=== PATIENT | male | born 1945 | race Caucasian/White ===

== ENCOUNTER → 2021-04-19 | Outpatient (CLI) | payer MEDICARE, OTHER ==
[~2021-04-19] MED LIST: ALLO300 PO; ASPI325 PO; ASPI81CH PO; CLOP75 PO; FISH1000 PO; GLYB5 PO; GLYMET5 PO; HUMALOG100 UNIT/1 SC; INS70/30I SUBQ; INSULANI SC; INSULANPEN SC; LEVSOD100 PO; LEVSOD50 PO; LISI10 PO; LOSA25 PO; METF500C PO; METO25ER PO; NIAC500ER PO; NITR.4SL SL; OMEGA-3 + VITA1 EACH PO; PIOG30 PO; SITA50T2 PO; TERA1 PO; TERAZOSIN PO
[2021-04-19 16:09] LABS: Hematocrit 40.9 % (37.0-53.0); Hemoglobin 13.7 g/dL (13.5-17.5); Mean Corpuscular HGB 32.1 pg (26.0-34.0); Mean Corpuscular HGB Conc 33.5 g/dL (31.5-36.5); Mean Corpuscular Volume 96 fL (80-100); Mean Platelet Volume 10.5 fL (9.1-12.4); Platelet Count 221 K/mm3 (150-400); RDW Coefficient Variation 12.9 % (11.7-14.2); RDW Standard Deviation 45.2 fL (35.1-46.3); Red Blood Cell Count 4.27 M/mm3 (4.30-5.90); White Blood Cell Count 9.55 K/mm3 (4.00-11.30)
[2021-04-19 16:25] LABS: International Normalized Ratio 0.97; Prothrombin Time Results 10.2 Sec (9.7-11.5)
[2021-04-19 16:38] LABS: BASOPHILS ABSOLUTE MAN 0.19 K/mm3 (0.00-0.23); BASOPHILS PERCENT MAN 2 % (0-2); EOSINOPHILS ABSOLUTE MAN 0.28 K/mm3 (0.00-0.68); EOSINOPHILS PERCENT MAN 3 % (0-6); LYMPHOCYTES ABSOLUTE MAN 1.62 K/mm3 (0.84-5.20); LYMPHOCYTES PERCENT MAN 17 % (21-46); MONOCYTES ABSOLUTE MAN 0.38 K/mm3 (0.16-1.47); MONOCYTES PERCENT MAN 4 % (4-13); NEUTROPHILS ABSOLUTE MAN 7.06 K/mm3 (1.96-9.15); SEG NEUTROPHILS PERCENT MAN 74 % (41-73); TOTAL CELLS COUNTED 100
[2021-04-19 17:00] LABS: SARS-Cov-2 (COVID-19) PCR, MMC NEGATIVE (NEGATIVE)
[2021-04-19 17:04] LABS: Bun/Creatinine Ratio 19.5 (12.0-20.0); Calcium, Blood 10.6 mg/dL (8.5-10.1); Creatinine, Blood 1.64 mg/dL (0.60-1.20); Potassium, Blood 4.5 mmol/L (3.5-5.5)
== END | disposition home or self-care (01) ==
LOC: LAB SHORT 15:19
PROVIDERS: Internal Medicine Interventional Cardiology
DX: Z01.812 Encounter for preprocedural laboratory examination (principal); I25.118 Atherosclerotic heart disease of native coronary artery with other forms of angina pectoris; R07.9 Chest pain, unspecified; I10 Essential (primary) hypertension; Z20.822 Contact with and (suspected) exposure to COVID-19
CPT/HCPCS: 80048; 85007; 85027; 85610; U0004

== ENCOUNTER 2021-04-20 07:54 | Day surgery (SDC) | payer MEDICARE, OTHER ==
[~2021-04-20] VITALS: Ht 177.8 cm; Wt 123.0 kg
[~2021-04-20 07:54] MED LIST changes: -OMEGA-3 + VITA1 EACH PO
[2021-04-20] MEDS ORDERED: OMEGA-3 + VITA1 EACH PO (08:38)
--- NOTE | 2021-04-20 12:31 | NUR ---
PT SITTING IN RECLINER IN RECOVERY ROOM TALKING WITH SON. LEFT RADIAL TR BAND SITE SOFT NON-TENDER WITH NO HEMATOMA, NO PULSATILE BLEEDING WITH WRIST BOARD IN PLACE. PT DENIES CHEST PAIN. CALL LIGHT IN REACH.
--- NOTE | 2021-04-20 14:08 | NUR ---
AT 1355 AFTER 10 MIN 12 CC OF AIR WAS REMOVED OUT OF NOW DEFLATED LEFT TR BAND. NO HEMATOMA, NO PULSATILE BLEEDING WITH WRIST BOARD IN PLACE. DISCHARGE INSTRUCTIONS REVIEWED AND ALL QUESTIONS ANSWERED.
--- NOTE | 2021-04-20 14:43 | NUR ---
PATIENT UP AND OFF MONITOR. TR BAND REMOVED AND SITE CLEANED. CLOTH DOT PLACED. SON HERE. DISCHARGE INSTRUCTIONS REVIEWED WITH THE PATIENT AND SON. WHITE WRIST BOARD REPLAED TO THE RIGHT WRIST AND PATIENT INSTRUCTED TO WEAR THE BOARD FOR TWO DAYS AND NO LIFTING WITH RIGHT WRIST FOR 5 DAYS. PIV REMOVED. VVS. PATIENT DRESSED SELF AND TO THE WHEELCHAIR. DISCHARGED HOME WITH SON DRIVING.
== END 2021-04-20 14:55 | disposition home or self-care (01) ==
LOC: MHTC 07:54
DX: I25.110 Atherosclerotic heart disease of native coronary artery with unstable angina pectoris (principal); I10 Essential (primary) hypertension; E78.2 Mixed hyperlipidemia; E11.9 Type 2 diabetes mellitus without complications; E03.9 Hypothyroidism, unspecified; Z95.5 Presence of coronary angioplasty implant and graft; Z96.653 Presence of artificial knee joint, bilateral; Z79.84 Long term (current) use of oral hypoglycemic drugs
CPT/HCPCS: 76937; 85347; 93454; 99152; 99153; C1769; C1887; C1894; J1644; J2250; J3010; J7030; Q9967

== ENCOUNTER 2021-05-09 15:10 | Emergency (ER) | payer MEDICARE, OTHER ==
[~2021-05-09] VITALS: Ht 177.8 cm; Wt 117.9 kg
[~2021-05-09 15:10] MED LIST changes: +OMEGA-3 + VITA1 EACH PO
[2021-05-09 15:51] LABS: BASOPHILS ABSOLUTE AUTO 0.08 K/mm3 (0.00-0.23); BASOPHILS PERCENT AUTO 1 % (0-2); EOSINOPHILS ABSOLUTE AUTO 0.38 K/mm3 (0.00-0.68); EOSINOPHILS PERCENT AUTO 4 % (0-6); Hematocrit 39.2 % (37.0-53.0); Hemoglobin 13.2 g/dL (13.5-17.5); IMMATURE GRAN ABSOLUTE AUTO 0.05 K/mm3 (0.00-0.10); IMMATURE GRAN PERCENT AUTO 1 % (0-1); LYMPHOCYTES ABSOLUTE AUTO 1.62 K/mm3 (0.84-5.20); LYMPHOCYTES PERCENT AUTO 17 % (21-46); MONOCYTES ABSOLUTE AUTO 0.57 K/mm3 (0.16-1.47); MONOCYTES PERCENT AUTO 6 % (4-13); Mean Corpuscular HGB 32.1 pg (26.0-34.0); Mean Corpuscular HGB Conc 33.7 g/dL (31.5-36.5); Mean Corpuscular Volume 95 fL (80-100); Mean Platelet Volume 10.8 fL (9.1-12.4); NEUTROPHILS ABSOLUTE AUTO 6.94 K/mm3 (1.96-9.15); NEUTROPHILS PERCENT AUTO 72 % (41-73); Platelet Count 213 K/mm3 (150-400); RDW Coefficient Variation 12.8 % (11.7-14.2); RDW Standard Deviation 44.6 fL (35.1-46.3); Red Blood Cell Count 4.11 M/mm3 (4.30-5.90); White Blood Cell Count 9.64 K/mm3 (4.00-11.30)
[2021-05-09 16:34] LABS: International Normalized Ratio 0.99; Prothrombin Time Results 10.4 Sec (9.7-11.5)
[2021-05-09 16:41] LABS: Albumin, Blood 3.3 g/dL (3.4-5.0); Albumin/Globulin Ratio 0.8 (0.8-1.8); Bilirubin, Total 0.4 mg/dL (0.1-1.0); Bun/Creatinine Ratio 25.9 (12.0-20.0); Calcium, Blood 10.2 mg/dL (8.5-10.1); Creatinine, Blood 1.85 mg/dL (0.60-1.20); Globulin, Blood 4.2 g/dL (2.2-4.0); Potassium, Blood 4.4 mmol/L (3.5-5.5); Total Protein, Blood 7.5 g/dL (6.4-8.2); Troponin I 0.031 ng/mL (0.000-0.040)
[2021-05-09 18:19] LABS: Influenza A, PCR NEGATIVE (NEGATIVE); Influenza B, PCR NEGATIVE (NEGATIVE); Resp Syncytial Virus, PCR NEGATIVE (NEGATIVE); SARS-Cov-2 (COVID-19) PCR, MMC NEGATIVE (NEGATIVE)
== END 2021-05-09 18:21 | disposition home or self-care (01) ==
LOC: ER 15:10
PROVIDERS: Emergency Medicine
DX: R07.9 Chest pain, unspecified (principal); E11.9 Type 2 diabetes mellitus without complications; I25.2 Old myocardial infarction; I25.10 Atherosclerotic heart disease of native coronary artery without angina pectoris; G47.33 Obstructive sleep apnea (adult) (pediatric); Z88.8 Allergy status to other drugs, medicaments and biological substances; Z79.84 Long term (current) use of oral hypoglycemic drugs; Z79.4 Long term (current) use of insulin; Z79.899 Other long term (current) drug therapy
CPT/HCPCS: 0241U; 71045; 80053; 84484; 85025; 85610; 85730; 93005; 93010; 99285-25; A9270

== ENCOUNTER 2024-04-26 05:53 | Inpatient (IN) | payer MEDICARE, OTHER ==
[~2024-04-26] VITALS: Ht 177.8 cm; Wt 119.9 kg
[~2024-04-26 05:53] MED LIST changes: +EUTHYROX125 MCG PO
[2024-04-26 06:45] LABS: BASOPHILS PERCENT AUTO 1 % (0-2); EOSINOPHILS ABSOLUTE AUTO 0.12 K/mm3 (0.00-0.68); EOSINOPHILS PERCENT AUTO 1 % (0-6); Hematocrit 39.7 % (37.0-53.0); Hemoglobin 13.6 g/dL (13.5-17.5); IMMATURE GRAN ABSOLUTE AUTO 0.05 K/mm3 (0.00-0.10); IMMATURE GRAN PERCENT AUTO 0 % (0-1); LYMPHOCYTES ABSOLUTE AUTO 1.25 K/mm3 (0.84-5.20); LYMPHOCYTES PERCENT AUTO 10 % (21-46); MONOCYTES ABSOLUTE AUTO 0.49 K/mm3 (0.16-1.47); MONOCYTES PERCENT AUTO 4 % (4-13); Mean Corpuscular HGB 32.2 pg (26.0-34.0); Mean Corpuscular HGB Conc 34.3 g/dL (31.5-36.5); Mean Corpuscular Volume 94 fL (80-100); NEUTROPHILS ABSOLUTE AUTO 10.09 K/mm3 (1.96-9.15); NEUTROPHILS PERCENT AUTO 84 % (41-73); Platelet Count 213 K/mm3 (150-400); RDW Coefficient Variation 13.6 % (11.7-14.2); RDW Standard Deviation 46.6 fL (35.1-46.3); Red Blood Cell Count 4.23 M/mm3 (4.30-5.90)
[2024-04-26 07:03] LABS: Albumin, Blood 3.7 g/dL (3.4-5.0); Bilirubin, Total 0.7 mg/dL (0.1-1.0); Bun/Creatinine Ratio 22.3 (12.0-20.0); Calcium, Blood 9.9 mg/dL (8.5-10.1); Creatinine, Blood 3.09 mg/dL (0.60-1.20); Globulin, Blood 3.7 g/dL (2.2-4.0); Magnesium, Blood 2.6 mg/dL (1.6-2.4); Potassium, Blood 4.3 mmol/L (3.5-5.5); Total Protein, Blood 7.4 g/dL (6.4-8.2)
[2024-04-26] MEDS ORDERED: Mag Hydrox/AL Hydrox/Simeth 30 ML UDC PO ONE (07:15)
[2024-04-26] MEDS ORDERED: Famotidine 10 MG/ML 2ML Vial IV ONE (07:15)
[2024-04-26] MEDS ORDERED: Nitroglycerin 0.4 MG SUBL SL PRN (08:15)
[2024-04-26] MEDS ORDERED: Nitroglycerin 1 INCH/GM PKT TOP ONE (09:35)
[2024-04-26] MEDS ORDERED: Aspirin 325 MG Tab PO ONE (10:40)
[2024-04-26 11:41] LABS: Anti-Xa UFH, PHA Monitoring <0.10 IU/mL; International Normalized Ratio 0.98; Prothrombin Time Results 10.5 Sec (9.7-11.5)
[2024-04-26] MEDS ORDERED: Heparin Sodium,Porcine/0.5 NS 500 ML IV SCH (12:00)
[2024-04-26] MEDS ORDERED: Heparin Sodium 5000 Units/ML 1ML MDV IV ONE (12:00)
[2024-04-26] MEDS ORDERED: SOAANZ20 M1 PO (15:53)
--- NOTE | 2024-04-26 15:53 | NUR ---
DATA LOAD AND CHART REVIEW FOR POTENTIAL ADMIT.
[2024-04-26] MEDS ORDERED: METO25ER PO (15:54)
[2024-04-26] MEDS ORDERED: CALC.25 PO (16:08)
[2024-04-26] MEDS ORDERED: TAMS.4ER PO (16:11)
[2024-04-26] MEDS ORDERED: Insulin Human Lispro 100 Units/ML 3ML Syringe SC SCH ×2 (16:30→17:30)
[2024-04-26 16:46] VITALS: BP 134/91
[2024-04-26] MEDS ORDERED: Calcitriol 0.25 MCG Cap PO SCH (17:15)
[2024-04-26] MEDS ORDERED: Morphine Sulfate 4 MG/1 ML Injection IV PRN (17:15)
--- NOTE | 2024-04-26 18:14 | NUR ---
ADMISSION NOTES: PATIENT ARRIVES TO ROOM VIA GURNEY AT 1642 FROM ER FOR DX'S OF CP. PATIENT TRANSFERRED TO BED c SBA. DR. BOYKIN (HOSPITALIST) CAME AND SPOKE TO PATIENT c PLAN OF CARE. PATIENT VERBALIZED UNDERSTANDING AND NO FURTHER QUESTIONS. PATIENT ADMISSION, MEDRIC AND SKIN ASSESSMENT c 2 RN'S VERIFIED COMPLETED. PATIENT ORIENTATED TO ROOM AND CALL SYSTEM. PATIENT A/OX4, ANSWER TO QUESTIONS APPROPRIATELY AND ABLE TO MAKE NEEDS KNOWN. PATIENT ON TELE, NSR HR IN THE LOW 60'S BPM. PATIENT DENIES CP/PRESSURE, SOB, N/V AND DIZZINESS. PATIENT IS FULL CODE, CONS CARB DIET c BS AC/HS. PATIENT HAS PIV TO RAC INFUSING HEPARIN AT 15 U/KG/HR-27.6 ML/HR, RATE CONTROLLED BY PHARMACIST. PATIENT RECEIVED SCHEDULED MEDS PER EMAR. VITAL SIGNS REVIEWED. CALL LIGHT IN REACH.
[2024-04-26 19:38] VITALS: BP 136/58
[2024-04-26] MEDS ORDERED: Insulin Glargine-Yfgn 100 Unit/mL 3 ML SYR SC SCH (21:00)
[2024-04-26] MEDS ORDERED: Losartan Potassium 25 MG Tab PO SCH (21:00)
[2024-04-26] MEDS ORDERED: Dose Adjust by Pharmacy XX STA (21:15)
[2024-04-27 02:18] LABS: BASOPHILS ABSOLUTE AUTO 0.08 K/mm3 (0.00-0.23); BASOPHILS PERCENT AUTO 1 % (0-2); EOSINOPHILS ABSOLUTE AUTO 0.21 K/mm3 (0.00-0.68); EOSINOPHILS PERCENT AUTO 3 % (0-6); Hematocrit 40.1 % (37.0-53.0); Hemoglobin 13.7 g/dL (13.5-17.5); IMMATURE GRAN ABSOLUTE AUTO 0.02 K/mm3 (0.00-0.10); IMMATURE GRAN PERCENT AUTO 0 % (0-1); LYMPHOCYTES PERCENT AUTO 22 % (21-46); MONOCYTES ABSOLUTE AUTO 0.78 K/mm3 (0.16-1.47); MONOCYTES PERCENT AUTO 9 % (4-13); Mean Corpuscular HGB 32.4 pg (26.0-34.0); Mean Corpuscular HGB Conc 34.2 g/dL (31.5-36.5); Mean Corpuscular Volume 95 fL (80-100); Mean Platelet Volume 10.4 fL (9.1-12.4); NEUTROPHILS ABSOLUTE AUTO 5.39 K/mm3 (1.96-9.15); NEUTROPHILS PERCENT AUTO 65 % (41-73); Platelet Count 212 K/mm3 (150-400); RDW Coefficient Variation 13.9 % (11.7-14.2); RDW Standard Deviation 48.8 fL (35.1-46.3); Red Blood Cell Count 4.23 M/mm3 (4.30-5.90); White Blood Cell Count 8.28 K/mm3 (4.00-11.30)
[2024-04-27] MEDS ORDERED: Dose Adjust by Pharmacy XX STA (02:35)
[2024-04-27 02:38] LABS: Albumin, Blood 3.4 g/dL (3.4-5.0); Albumin/Globulin Ratio 0.9 (0.8-1.8); Bilirubin, Total 0.5 mg/dL (0.1-1.0); Bun/Creatinine Ratio 21.6 (12.0-20.0); Calcium, Blood 9.8 mg/dL (8.5-10.1); Creatinine, Blood 2.78 mg/dL (0.60-1.20); Globulin, Blood 3.7 g/dL (2.2-4.0); Potassium, Blood 3.7 mmol/L (3.5-5.5); Total Protein, Blood 7.1 g/dL (6.4-8.2)
[2024-04-27 03:12] VITALS: BP 135/66
[2024-04-27] MEDS ORDERED: Levothyroxine Sodium 0.1 MG Tab PO SCH (06:00)
--- NOTE | 2024-04-27 06:03 | NUR ---
SHIFT SUMMARY: Pt admitted for chest pain and is a full code. Is alert and able to make needs known. ADLs have been SBA. denies pain or discomfort when asked. Telly reports sinus in the 60s with a bundle branch and 2deg type 1. NPO started at midnight pending testing. Been on a heprin drip through shift at a rate of 27.6 ml/h with no changes.
[2024-04-27 07:23] VITALS: BP 137/55
--- NOTE | 2024-04-27 08:24 | NUR ---
NOTES: AT 0818 RECEIVED A CALL FROM KATHY WELLER [employer]IA [employer]. PER NITHIN, PATIENT HAD 2ND DEGREE HB TYPE 1 HR AT 59 BPM, SR. NOTIFIED DR. LUCRETIA meneses THIS CONCERNED. PER DR. OBYKIN IT HAPPENED IN ER HIS HR WENT DOWN TO 30'S, CTM PATIENT T/O SHIFT.
[2024-04-27] MEDS ORDERED: Insulin Glargine-Yfgn 100 Unit/mL 3 ML SYR SC SCH (09:00)
[2024-04-27] MEDS ORDERED: Tamsulosin HCl 0.4 MG Cap PO SCH (09:00)
[2024-04-27] MEDS ORDERED: Aspirin 81 MG Chew PO SCH (09:00)
[2024-04-27] MEDS ORDERED: Allopurinol 300 MG Tab PO SCH (09:00)
--- NOTE | 2024-04-27 12:19 | NUR ---
NOTE: PATIENT HEPARIN GTT DC'D AT 1215 PER ORDER.
[2024-04-27 15:29] VITALS: BP 123/60
--- NOTE | 2024-04-27 16:49 | NUR ---
SHIFT SUMMARY: PATIENT A/OX4, CALM, PLEASANT AND COOPERATIVE c CARE. PATIENT DENIES CP/PRESSURE, SOB, N/V AND DIZZINESS. PATIENT ON TELE, SR c 2ND DHB-TYPE1, HR RANGES HIGH 50'S TO HIGH 60'S BPM. PATIENT HAD HIS RESTING PART OF STRESS TEST DONE TODAY, AND 2ND PART WILL BE TOMORROW AM. PATIENT WILL BE NPO AT [place] AND NO CAFFIENE OR DECAFF DRINKS STARTED DINNER. PATIENT HAS GREAT APPETITE, CONTINENT OF BOWEL/BLADDER, AMBULATES TO BATHROOM INDEPENDENTLY T/O SHIFT. PATIENT HAD SHOWER AND LINEN CHANGED TODAY. VITAL SIGNS REVIEWED. PATIENT HAS HAD NO COMPLAINTS OR DENIES NEW CONCERNED THIS SHIFT. CALL LIGHT IN REACH.
[2024-04-27] MEDS ORDERED: Insulin Human Lispro 100 Units/ML 3ML Syringe SC SCH (17:30)
[2024-04-27 19:30] VITALS: BP 133/61
[2024-04-28] MEDS ORDERED: Heparin Sodium,Porcine 5,000 UNIT/0.5 ML SDV SC SCH
[2024-04-28] MEDS ORDERED: Heparin Sodium 5000 Units/ML 1ML MDV SC SCH (00:44)
[2024-04-28 04:09] VITALS: BP 122/67
[2024-04-28 05:04] LABS: BASOPHILS ABSOLUTE AUTO 0.11 K/mm3 (0.00-0.23); BASOPHILS PERCENT AUTO 2 % (0-2); EOSINOPHILS ABSOLUTE AUTO 0.38 K/mm3 (0.00-0.68); EOSINOPHILS PERCENT AUTO 5 % (0-6); Hematocrit 38.3 % (37.0-53.0); IMMATURE GRAN ABSOLUTE AUTO 0.04 K/mm3 (0.00-0.10); IMMATURE GRAN PERCENT AUTO 1 % (0-1); LYMPHOCYTES ABSOLUTE AUTO 1.94 K/mm3 (0.84-5.20); LYMPHOCYTES PERCENT AUTO 27 % (21-46); MONOCYTES ABSOLUTE AUTO 0.66 K/mm3 (0.16-1.47); MONOCYTES PERCENT AUTO 9 % (4-13); Mean Corpuscular HGB 32.3 pg (26.0-34.0); Mean Corpuscular HGB Conc 33.9 g/dL (31.5-36.5); Mean Corpuscular Volume 95 fL (80-100); Mean Platelet Volume 10.2 fL (9.1-12.4); NEUTROPHILS ABSOLUTE AUTO 4.07 K/mm3 (1.96-9.15); NEUTROPHILS PERCENT AUTO 57 % (41-73); Platelet Count 215 K/mm3 (150-400); RDW Coefficient Variation 13.7 % (11.7-14.2); RDW Standard Deviation 48.3 fL (35.1-46.3); Red Blood Cell Count 4.03 M/mm3 (4.30-5.90)
[2024-04-28 05:36] LABS: Albumin, Blood 3.2 g/dL (3.4-5.0); Anion Gap 12 mmol/L (3-11); Blood Urea Nitrogen 59 mg/dL (8-24); Bun/Creatinine Ratio 22.3 (12.0-20.0); CO2, Blood 24 mmol/L (21-32); Calcium, Blood 9.9 mg/dL (8.5-10.1); Chloride, Blood 109 mmol/L (98-108); Creatinine, Blood 2.65 mg/dL (0.60-1.20); Glomerular Filtration Rate 24 (60-); Glucose, Blood 99 mg/dL (70-99); Phosphorus, Blood 3.9 mg/dL (2.5-4.9); Potassium, Blood 3.8 mmol/L (3.5-5.5); Sodium, Blood 141 mmol/L (136-145)
--- NOTE | 2024-04-28 06:02 | NUR ---
SHIFT SUMMARY: Pt admitted for chest pain and is a full code. Is alert and able to make needs known. ADLs have been SBA. denies pain or discomfort when asked. Telly reports sinus in the 60s. NPO started at midnight pending testing.
[2024-04-28 07:21] VITALS: BP 133/68
[2024-04-28] MEDS ORDERED: Regadenoson 0.4 MG/5 ML SYRINGE ONE (07:31)
[2024-04-28] MEDS ORDERED: Aminophylline 250MG / 10ML 10 ML Vial ONE (07:31)
[2024-04-28] MEDS ORDERED: LOSA25 PO (13:15)
--- NOTE | 2024-04-28 14:59 | NUR ---
PATIENT D/C'D TO HOME WITH FAMILY. ZIO PATCH PLACED PRIOR TO DC. DC INSTRUCTIONS AND EDUCATION DISCUSSED WITH PATIENT AND COPY PROVIDED. PATIENT TO FOLLOW UP WITH PCP AND CARDIOLOGY. PATIENT DENIES ANY FURTHER QUESTIONS OR CONCERNS.
== END 2024-04-28 14:57 | disposition home or self-care (01) | DRG 303 ==
LOC: ER 05:53 → MEDS 05:54
PROVIDERS: Family Medicine; Student in an Organized Health Care Education/Training Program; ADMIT Internal Medicine
DX: I25.110 Atherosclerotic heart disease of native coronary artery with unstable angina pectoris (principal); I50.32 Chronic diastolic (congestive) heart failure; N17.9 Acute kidney failure, unspecified; N18.4 Chronic kidney disease, stage 4 (severe); I13.0 Hypertensive heart and chronic kidney disease with heart failure and stage 1 through stage 4 chronic kidney disease, or unspecified chronic kidney disease; Z95.5 Presence of coronary angioplasty implant and graft; I35.0 Nonrheumatic aortic (valve) stenosis; E03.9 Hypothyroidism, unspecified; Z66 Do not resuscitate; E11.22 Type 2 diabetes mellitus with diabetic chronic kidney disease; M10.9 Gout, unspecified; I44.1 Atrioventricular block, second degree; I25.2 Old myocardial infarction; G47.33 Obstructive sleep apnea (adult) (pediatric); Z96.653 Presence of artificial knee joint, bilateral; Z98.890 Other specified postprocedural states; Z88.8 Allergy status to other drugs, medicaments and biological substances; Z79.82 Long term (current) use of aspirin; Z79.4 Long term (current) use of insulin; Z79.890 Hormone replacement therapy; I45.10 Unspecified right bundle-branch block; Z79.84 Long term (current) use of oral hypoglycemic drugs
CPT/HCPCS: 36415; 71275; 74174; 78452; 80053; 80069; 82947; 83690; 83735; 84484; 85025; 85520; 85610; 85730; 93005; 93010; 93017; 93246; 94762; 96365; 96366; 96375; 99285-25; A9270; A9500; G0378; J0280; J1644; J1815; J2785; Q9967